=== PATIENT | male | born 1965 | race Caucasian/White ===

== ENCOUNTER 2019-09-02 09:46 | Outpatient (CLI) | payer BC, OTHER, SELFPAY ==
[2019-09-03 17:49] LABS: COVID-19 RT-PCR Result NEGATIVE (Negative)
== END 2019-09-02 10:06 ==
PROVIDERS: Visit Provider Ophthalmology Glaucoma Specialist
DX: Z11.59 Encounter for screening for other viral diseases (principal); Z01.818 Encounter for other preprocedural examination
CPT/HCPCS: U0003

== ENCOUNTER 2022-01-14 10:21 | Outpatient (CLI) | payer OTHER, SELFPAY ==
[2022-01-14] MEDS: Albuterol HFA 18 GM 200 PUFF INH IH (11:45)
[2022-01-14] MEDS: Inhaler, Assist Device 1 EACH MC (11:46)
--- NOTE | 2022-01-14 15:29 | W.PFT ---
Date of service: 01/14/22 Time of Service: 10:23 Pulmonary Function Test Result Requesting Provider Shelley Garner Indications: Asthma Interpretation Spirometry: There is no airflow limitation. There is no significant bronchodilator response. Lung Volumes: Normal lung volumes. Diffusion Capacity: Normal diffusion. Airway Pressure: Normal airways resistance. Impression Normal pulmonary function testing. Clinical Correlation therefore is recommended.
== END 2022-01-14 10:22 | disposition home or self-care (01) ==
LOC: RT 10:32
PROVIDERS: Visit Provider Internal Medicine
DX: J45.909 Unspecified asthma, uncomplicated (principal)
CPT/HCPCS: 94060; 94726; 94729